=== PATIENT | female | born 1990 | race Caucasian/White ===

== ENCOUNTER 2016-12-24 16:04 | Outpatient (CLI) | payer OTHER ==
--- NOTE | 2016-12-25 09:22 | Diagnostic Imaging Report ---
Right foot 3 views Indication: Trauma Comparison: none Findings: There is generalized soft tissue prominence. No evidence of an acute fracture or dislocation. Nail urdu material of the first toenail is noted. Impression: No evidence of an acute fracture. Jen soft tissue prominence which may be due to body habitus. In the setting of trauma, if clinical symptoms persist and there is continued concern for an occult fracture, follow up exams in 5-7 days is suggested.
== END 2016-12-24 16:43 | disposition home or self-care (01) ==
LOC: RAD 16:04
PROVIDERS: ATTEND Emergency Medicine
DX: S99.921A Unspecified injury of right foot, initial encounter (principal); X58.XXXA Exposure to other specified factors, initial encounter; Y93.89 Activity, other specified; Y92.89 Other specified places as the place of occurrence of the external cause; Y99.8 Other external cause status
CPT/HCPCS: 73630-TC-RT

== ENCOUNTER 2017-03-21 12:25 | Outpatient (CLI) | payer OTHER ==
[2017-03-21 13:00] LABS: URINE BILIRUBIN NEGATIVE (NEGATIVE); URINE COLOR YELLOW; URINE GLUCOSE (UA) NEGATIVE (NEGATIVE); URINE KETONE NEGATIVE (NEGATIVE)
[2017-03-21 13:01] LABS: URINE BLOOD TRACE (NEGATIVE); URINE PH 7.5; URINE PROTEIN NEGATIVE (NEGATIVE); URINE UROBILINOGEN 0.2 E.U./dL (0.2 - 1.0)
[2017-03-21 13:07] LABS: URINE RBC 0-2 /hpf (0-5); URINE WBC 0-2 /hpf (0-5)
[2017-03-21 13:08] LABS: URINE BACTERIA MODERATE /hpf (NONE SEEN); URINE EPITHELIAL CELLS FEW /lpf (FEW)
[2017-03-25 03:10] LABS: CHLAMYDIA DNA SDA PROBETEC Negative (Negative); GC DNA SDA PROBETEC Negative (Negative)
== END 2017-03-21 12:45 | disposition home or self-care (01) ==
LOC: LAB 12:25
DX: N76.0 Acute vaginitis (principal)
CPT/HCPCS: 81001-TC; 87086-90; 87491-90

== ENCOUNTER 2018-04-03 13:09 | Emergency (ER) | payer OTHER ==
--- NOTE | 2018-04-03 14:59 | ED Physician Chart ---
ED Chief Complaint/HPI - Patient Information Date Seen:: 04/03/18 Time Seen:: 13:20 Chief Complaint:: Congestion History of Present Illness:: onset x 7 days of intermittent frontal sinus H/As, fever, S/T, E/As, cough, and congestion; pt denies trauma, neck pain, C/P, SOB, Abd. Pain, A/N/V/D/C, chills , or urinary s/s; pt is eating and urinating well; pt denies visual or gait changes, weakness, dizziness, hearing loss, tinnitus, paresthesias, or vertigo Allergies:: Allergies Allergy/AdvReac Type Severity Reaction Status Date / Time No Known Allergies Allergy Verified 06/24/16 19:36 Vitals:: Vital Signs - 8 hr 04/03/18 04/03/18 13:24 13:31 Temp 98.2 F 98.2 F HR 88 88 RR 16 16 BP 140/78 140/78 O2 Sat % 98 98 Historian:: Patient Review:: Nurse's Note Reviewed ED Review of Systems - Review of Systems General/Constitutional: Fever, No chills, No weight loss, No weakness, No diaphoresis, No edema, No loss of appetite Skin: No skin lesions, No rash, No bruising Head: No headache, No light-headedness Eyes: No loss of vision, No pain, No diplopia ENT: Earache, Nasal drainage, No sore throat, No tinnitus Neck: No neck pain, No swelling, No thyromegaly, No stiffness, No mass noted Cardio Vascular: No chest pain, No palpitations, No PND, No orthopnea, No edema Pulmonary: No SOB, Cough, No sputum, No wheezing GI: No nausea, No vomiting, No diarrhea, No pain, No melena, No hematochezia, No constipation, No hematemesis G/U: No dysuria, No frequency, No hematuria, No nacturia Child Care Education Coordinator: No vaginal discharge, No abnormal vaginal bleed, No contraction Musculoskeletal: No bone or joint pain, No back pain, No muscle pain Endocrine: No polyuria, No polydipsia Psychiatric: No prior psych history, No depression, No anxiety, No suicidal ideation, No homicidal ideation, No auditory hallucination, No visual hallucination Hematopoietic: No bruising, No lymphadenopathy Allergic/Immuno: No urticaria, No angioedema Neurological: No syncope, No focal symptoms, No weakness, No paresthesia, No headache, No seizure, No dizziness, No confusion, No vertigo ED Past Medical History - Past Medical History Obtainable: Yes Past Medical History: No significant medical hx Family History: None Social History: Non Smoker, No Alcohol, No Drug Use, Single, Employed Surgical History: None Psychiatricy History: None Medication: Reviewed Family Medical History - Family Member Mother Ethnicity: Living Status: Still Living Hx Family Hypertension: Yes Father Hx Family Hypertension: Yes ED Physical Exam - Physical Examination General/Constitutional: Awake, Well-developed, well-nourished, Alert, No distress, GCS 15, Non-toxic appearing, Ambulatory Head: Atraumatic Eyes: Lids, conjuctiva normal, PERRL, EOMI Other Eyes comments:: PERRLA; Fundi: benign; EOMs: WNL Skin: Nl inspection, No rash, No skin lesions, No ecchymosis, Well hydrated, No lymphadenopathy ENMT: External ears, nose nl, Nasal exam nl, Lips, teeth, gums nl, Tonsils nl Other ENMT comments:: + Frontal and Maxillary Sinus Tenderness; + Nasal Congestion; Ears: TMs: dull and injected; Pharynx: Injected; no airway obstruction; TMJs: WNL Neck: Nontender, Full ROM w/o pain, No JVD, No nuchal rigidity, No bruit, No mass, No stridor Other Neck comments:: supple; no meningeal signs; no cervical tenderness; no bruits Respiratory: Nl effort/Exclusion, Clear to Auscultation, No Wheeze/Rhonchi/Rales Cardio Vascular: RRR, No murmur, gallop, rubs, NL S1 S2, Carotid/Femoral/Distal pulses equal bilaterally GI: No tenderness/rebounding/guarding, No organomegaly, No hernia, Normal BS's, Nondistended, No mass/bruits, No McBurney tenderness Other GI comments:: no pulsatile masses : No CVA tenderness Extremities: No tenderness or effusion, Full ROM, normal strength in all extremities, No edema, Normal digits & nails Neuro/Psych: Alert/oriented, DTR's symmetric, Normal sensory exam, Normal motor strength, Judgement/insight normal, Mood normal, Normal gait, No focal deficits Other Neuro/Psych comments:: no focal signs Misc: Normal back, No paraspinal tenderness ED Septic Shock - . Is Septic Shock (SBP<90, OR Lactate>4 mmol\L) present?: No - <6hrs of presentation: Vital Signs: Vital Signs - 8 hr 04/03/18 04/03/18 13:24 13:31 Temp 98.2 F 98.2 F HR 88 88 RR 16 16 BP 140/78 140/78 O2 Sat % 98 98 ED Reassessment (Disposition) - Reassessment Reassessment:: pt tolerated po fluids well in ER; pt is asymptomatic upon discharge Reassessment Condition:: Improved - Diagnosis Diagnosis:: Dx: Congestion; Sinus Headaches; Sinusitis; Earaches; Otitis Media; Sore Throat ; Pharyngitis; Cough; Bronchitis; Fever; URI - Aftercare/Follow up Instructions Aftercare/Follow-Up Instructions:: Counseled pt regarding lab results/diagnosis & need follow up, Refer to Discharge Instructions, Counseled pt & family regarding lab results/diagnosis & need follow up Medication Prescribed:: Rx: Amoxicillin 500mg po tid x 10 days; Tylenol 500mg po qid prn fever,H/As, and /or pain; Cool Mist Vaporizer; Salt Water Gargles; encourage fluids - Patient Disposition Discharge/Transfer:: Home Condition at Disposition:: Stable, Improved (RTER prn if existing s/s reoccur and/or get worse and/or any other new s/s occur; ACIs given for all above Dx; Refer to ENT Specialist/Neurologist/Family Preservation Caseworker [place]; F/U with PMD in one day or prn; RTER prn if concerned) ED Discharge Plan - Patient Disposition Admit/Discharge/Transfer: PT DISCHARGED HOME Condition at Disposition: Stable Instructions: Upper Respiratory Infection, Adult, Sinus Headache
== END 2018-04-03 14:00 | disposition home or self-care (01) ==
LOC: ER 13:09
DX: J32.9 Chronic sinusitis, unspecified (principal); J02.9 Acute pharyngitis, unspecified; J40 Bronchitis, not specified as acute or chronic; J06.9 Acute upper respiratory infection, unspecified; H66.93 Otitis media, unspecified, bilateral
CPT/HCPCS: Z7502

== ENCOUNTER 2018-04-23 15:32 | Outpatient (CLI) | payer OTHER ==
--- NOTE | 2018-04-24 07:51 | Diagnostic Imaging Report ---
CHEST X-RAY: AP view INDICATION: Cough COMPARISON: Chest x-ray 06/24/2016 FINDINGS: There is no focal consolidation or pleural effusions The heart is normal in size. The osseous structures demonstrate no acute abnormalities. IMPRESSION: No focal airspace consolidation identified.
== END 2018-04-23 15:45 | disposition home or self-care (01) ==
LOC: RAD 15:32
DX: R05 Cough (principal)
CPT/HCPCS: 71045-TC

== ENCOUNTER 2018-08-05 11:42 | Outpatient (CLI) | payer OTHER | END 2018-08-05 12:30 | disposition home or self-care (01) | LOC: LAB 11:42 | DX: J45.909 Unspecified asthma, uncomplicated (principal); I10 Essential (primary) hypertension | CPT/HCPCS: 82785-90 ==

== ENCOUNTER 2019-04-06 07:05 | Outpatient (CLI) | payer OTHER ==
--- NOTE | 2019-04-06 09:44 | Diagnostic Imaging Report ---
Abdominal ultrasound HISTORY: Pain The liver exhibits a normal size with a homogeneous parenchyma. No focal lesions. The gallbladder appears normal. No calculi are seen. No biliary dilatation. There is incomplete visualization of the pancreas. No focal renal lesions. No hydronephrosis. The spleen is normal in size. No other retroperitoneal or intra-abdominal abnormalities. IMPRESSION: Negative examination
== END 2019-04-06 08:14 | disposition home or self-care (01) ==
LOC: RAD 07:05
PROVIDERS: ATTEND Internal Medicine
DX: R10.9 Unspecified abdominal pain (principal); K21.9 Gastro-esophageal reflux disease without esophagitis; J45.909 Unspecified asthma, uncomplicated; I10 Essential (primary) hypertension
CPT/HCPCS: 76700-TC

== ENCOUNTER 2019-05-28 07:53 | Outpatient (CLI) | payer OTHER ==
[2019-05-28] MEDS ORDERED: IOHEXOL 300mgI/mL 50 ML VIAL PO ONE (07:54)
[2019-05-28 08:34] LABS: ALB/GLOB RATIO 1.5 (1.0-1.8); ALBUMIN 4.4 gm/dL (3.7-5.3); ALKALINE PHOSPHATASE 67 U/L (34-104); ANION GAP 11.9 (7.0-16.0); BILIRUBIN,TOTAL 0.6 mg/dL (0.3-1.0); BUN - UREA NITROGEN 19 mg/dL (7-25); CALCIUM SERUM 9.5 mg/dL (8.6-10.3); CARBON DIOXIDE 26.1 mEq/L (21.0-31.0); CHLORIDE 104 mEq/L (98-107); CREATININE - SERUM 0.6 mg/dL (0.6-1.2); GFR AFRICAN-AMERICAN > 60.0 ml/min (>90); GFR NON AFRICAN-AMERICAN > 60.0 ml/min; GLUCOSE 93 mg/dL (70-105); SGOT 17 U/L (13-39); SGPT/ALT 17 U/L (7-52); SODIUM SERUM 138 mEq/L (136-145); TOTAL PROTEIN,SERUM 7.4 gm/dL (6.0-8.3)
--- NOTE | 2019-05-28 12:52 | Diagnostic Imaging Report ---
CT scan of the brain without contrast History: Headache Total DLP equals 1305 CTDI equals 74.0 Axial sections were obtained from the base of the skull to the vertex. There is a normal ventricular system size. No focal parenchymal lesions are seen. No evidence of any mass effect or shift of midline structures. No extra-axial masses or abnormal fluid collections. Impression: Normal examination
== END 2019-05-28 09:45 | disposition home or self-care (01) ==
LOC: LAB 07:53
PROVIDERS: ATTEND Internal Medicine
DX: K44.9 Diaphragmatic hernia without obstruction or gangrene (principal); K21.9 Gastro-esophageal reflux disease without esophagitis; I10 Essential (primary) hypertension; H57.02 Anisocoria
CPT/HCPCS: 70470; 36415; 80053; Q9967